=== PATIENT | male | born 1970 ===

== ENCOUNTER 2024-02-02 13:11 | Outpatient (RCR) | payer BC, SELFPAY | END 2024-02-02 14:45 | disposition home or self-care (01) | LOC: RPT 13:11 | PROVIDERS: ATTENDING PHYSICIAN Surgery | DX: K62.89 Other specified diseases of anus and rectum (principal); R27.8 Other lack of coordination; Z73.6 Limitation of activities due to disability | CPT/HCPCS: 97112; 97140; 97162; 97530 ==